=== PATIENT | male | born 1995 | race Caucasian/White ===

== ENCOUNTER 2016-03-08 15:04 | Emergency (ER) | payer BC ==
[~2016-03-08] VITALS: Ht 177.8 cm; Wt 88.6 kg
[2016-03-08 15:06] VITALS: BP 131/74; TEMP 98.6
[2016-03-08] MEDS ORDERED: NORCO 325 MG-51 TAB PO (16:00)
[2016-03-08 16:33] VITALS: PULSE 73
== END 2016-03-08 16:33 | disposition home or self-care (01) ==
LOC: COL.ER 15:04
DX: S92.352A Displaced fracture of fifth metatarsal bone, left foot, initial encounter for closed fracture (principal); X50.1XXA Overexertion from prolonged static or awkward postures, initial encounter; Y93.67 Activity, basketball; Y92.310 Basketball court as the place of occurrence of the external cause

== ENCOUNTER 2016-03-13 06:19 | Day surgery (SDC) | payer BC ==
[~2016-03-13] VITALS: Ht 177.8 cm; Wt 92.0 kg
[~2016-03-13 06:19] MED LIST: NORCO 325 MG-51 TAB PO
[2016-03-13 06:54] VITALS: BP 125/47; PULSE 66; TEMP 98.4
[2016-03-13 09:55] VITALS: BP 106/54; PULSE 58; TEMP 98
[2016-03-13 10:10] VITALS: BP 102/48; PULSE 59
[2016-03-13 10:25] VITALS: BP 104/51; PULSE 64
[2016-03-13 10:40] VITALS: BP 119/68; PULSE 59
[2016-03-13 10:55] VITALS: BP 113/66; PULSE 56
== END 2016-03-13 11:00 | disposition home or self-care (01) ==
LOC: SDCO 06:19
DX: S92.355A Nondisplaced fracture of fifth metatarsal bone, left foot, initial encounter for closed fracture (principal); X50.1XXA Overexertion from prolonged static or awkward postures, initial encounter; Y93.67 Activity, basketball
CPT/HCPCS: C1713; J0690; J1885; J2250; J2704; J3010; J7120